=== PATIENT | female | born 2005 | race Two or more races ===

== ENCOUNTER 2025-03-05 16:37 | Emergency (ER) | payer OTHER, MEDICAID, SELFPAY ==
[2025-03-05 16:39] VITALS: BMI 22.6
[2025-03-05 17:16] VITALS: BP 126/69; PULSE 88; RESP 18; TEMP 36.9; O2SAT 99
--- NOTE | 2025-03-05 17:31 | XR_ITS ---
Examination: Complete OB ultrasound, less than 14 weeks, transabdominal Date and time of exam: March 05, 2025 1821 hrs. Indications: Vaginal bleeding today Technique: Obstetrical ultrasound images less than 14 weeks performed via transabdominal imaging Findings: Uterus 6.2 cm endometrial stripe 1.1 cm No uterine mass or intrauterine gestation Right ovary 4.1 cm arterial flow Left ovary 3.2 cm arterial flow Impression: Negative study No intrauterine gestation or uterine mass
--- NOTE | 2025-03-05 17:31 | EDNOTE_ITS ---
ED OB Contraction Preg RMI/HPI General Chief complaint: Vaginal Bleeding Stated complaint: VAG BLEED, SPOTTING THIS AM, 7WK PREG Time Seen by Provider: 03/05/25 16:41 Arrival date/time: 03/05/25 16:37 RME / HPI RME / HPI Narrative: 19-year-old female patient with no significant medical history, 1 para 0 about 7 weeks , came in for evaluation regarding vaginal spotting. Onset of symptoms this morning severity of symptoms mild associated with mild pelvic pain. No checkup done yet. Related Data Allergies Allergy/AdvReac Type Severity Reaction Status Date / Time No Known Allergies Allergy Verified 03/05/25 16:42 Review of Systems Review of Systems Narrative Review of Systems: Review of system reviewed and within normal limits except mentioned in HPI ED Exam Narrative Physical exam: VITAL SIGNS: Reviewed. GENERAL APPEARANCE: Alert and interactive, follows commands, no acute distress, HEAD AND FACE: Non-traumatic. ENT: PERRL, pink conjunctivitis, eyelid no trauma, Mucous membrane moist. NECK: Supple, nontender, no nuchal rigidity. CHEST: No tenderness, no crepitus, no paradoxical movement, no retractions. LUNGS: Clear, well ventilated, symmetric, no rales, no wheezing, no ronchi, no stridor, good breath sounds bilaterally. HEART: Regular rate, regular rhythm, no murmur, no gallops. ABDOMEN: Soft, positive bowel sounds, nondistended, no guarding, nontender, no rebound, no masses, RECTAL: Deferred. GENITAL: Deferred. NEUROLOGICAL: Gross motor function intact sensory function intact, Appropriate for age. MUSCULOSKELETAL: low back nontender, full range of motion. EXTREMITIES: Nontender, full range of motion. SKIN: Color pink, dry, no rash, no lacerations, no abrasions, no contusions. LYMPHATICS: Deferred. Course Quality Measures none Orders Category Date Time Status US OB <= 14 weeks fetus Stat Exams 03/05/25 17:31 Completed ABO/RH Type Stat Lab 03/05/25 17:43 Completed Basic Metabolic Panel Stat Lab 03/05/25 17:43 Completed Beta HCG,Quantitative Stat Lab 03/05/25 17:43 Completed CBC Stat Lab 03/05/25 17:43 Completed Urinalysis Stat Lab 03/05/25 18:21 Completed Vital Signs Vital signs: Vital Signs Temperature 98.5 F 03/05/25 17:16 Pulse Rate 88 03/05/25 17:16 Respiratory Rate 18 03/05/25 17:16 Blood Pressure 126/69 03/05/25 17:16 Pulse Oximetry (%) 99 03/05/25 17:16 Oxygen Delivery Method Room Air 03/05/25 17:16 Vaginal Bleeding MDM Narrative MDM Narrative: 19-year-old female patient with no significant medical history, 1 para 0 about 7 weeks , came in for evaluation regarding vaginal spotting. Onset of symptoms this morning severity of symptoms mild associated with mild pelvic pain. No checkup done yet. Laboratory workup significant for hCG of 1073. Urinalysis no UTI. Ultrasound of showed no intrauterine gestation noted at this time could be too early no other abnormality noted. Patient data External records reviewed:: None Clinical information provided by:: patient Social determinants that could affect healthcare access:: none Patient has the following chronic illnesses:: None How is presenting disease/condition affected by chronic disease/condition?: no chronic disease Evaluation data The following diagnostics were reviewed and interpreted by me:: lab results and radiology exam(s) Lab and/or radiology exams considered but not ordered:: None Interpretation Summary: See results MDM Medications / Prescriptions Medications or Prescriptions considered but not ordered:: None Medication administrations:: None Consultations Consultation(s) initiated? (list below): No Diagnosis Vaginal Bleeding Differential Diagnosis: threatened and vaginal bleeding Most likely diagnosis given after review of the tests above:: Vaginal bleeding in early Admission Indicated Admission indicated?: not indicated Admission Request Was there a request for admission?: No Disposition Plan Disposition Plan: Discharge Discharge Attestation Discharge Attestation: The patient and all family members were given an opportunity to ask questions and understood the discharge instructions. Discharge instructions specifically effects, indications for sooner follow up or return to the emergency department, and the expected course of current diagnosis. Patient condition: Stable Discharge Plan Plan Patient Disposition: HOME (Self Care) Disposition Comment: Stable Prescriptions/Referrals Referrals: Noemi Cooley PA-C [Primary Care Provider] - In 1 week Problem List Clinical Impression: Bleeding in early Patient/Caregiver Discharge Instructions Discharge Activity: activity as tolerated Education Materials: Bleeding During Early Additional Instructions: Thank you for the opportunity for serving you today. You are stable for discharged . You are advised to: Follow-up with your PCP in 1 to 2 days Return to ED for worsening of symptoms Increase oral fluids Pelvic rest no sex for 1 week or until cleared by MECH[employer]ICAL COMMISSIONING ENGINEER Return to emergency room in [place] 3 days for repeat hCG. Print Language: Turkmen Stand Alone Forms: Joselin Award Info., Patient Portal Info Letter PA/WEIGHT TRAINING INSTRUCTOR Supervising Physician PA/WEIGHT TRAINING INSTRUCTOR Supervising Physician: MD Suman
[2025-03-05 17:58] LABS: Basophils % (Auto) 0 % (0-2.5); Eosinophils % (Auto) 0 % (0-10); Immature Granulocytes % (Auto) 0 % (0-0); Immature Granulocytes Auto 0.01 Thou/mm3 (0.00-0.00); Lymphocytes # (Auto) 1.6 Thou/mm3 (1.0-5.0); Lymphocytes % (Auto) 22 % (10-50); Mean Corpuscular HGB Conc 34.2 g/dl (31.0-37.0); Mean Corpuscular Hemoglobin 32.3 pg (25.0-35.0); Mean Corpuscular Volume 94 fL (80-100); Monocytes # (Auto) 0.5 Thou/mm3 (0.0-0.8); Monocytes % (Auto) 7 % (0-12); Neutrophils # (Auto) 5.1 Thou/mm3 (1.8-7.7); Neutrophils % (Auto) 71 % (37-80); Nucleated Red Blood Cell % 0 /100 WBC (0); Platelet Count 307 Thou/mm3 (140-440); Red Blood Count 4.03 Miln/mm3 (4.00-5.20); White Blood Count 7.2 Thou/mm3 (4.5-11.0)
[2025-03-05 18:27] LABS: Collection Type, Urine Clean Catch; Squamous Epithelial Cell,Urine 0 /hpf (0-5)
[2025-03-05 18:32] LABS: Bilirubin,Urine Negative (Negative); Blood,Urine 2+ (Negative); Clarity,Urine Clear (Clear/Hazy); Color,Urine Lt-Yellow (Lt Yel-Yel); Glucose, Urine Negative (Negative); Ketones,Urine 1+ (Negative); Leukocyte Esterase,Urine Negative (Negative); Nitrite,Urine Negative (Negative); Protein,Urine Negative (Neg - Trace); RBC,Urine 7 /hpf (0-3); Specific Gravity,Urine 1.018 (1.001-1.035); Urobilinogen,Urine Negative mg/dL (0.0-1.0); WBC,Urine 5 /hpf (0-5)
[2025-03-05 19:04] LABS: Anion Gap 8 (7-16); BUN/Creatinine Ratio 13 Ratio (12-20); Beta HCG,Quantitative 1073 mIU/mL (<5.0); Blood Urea Nitrogen 9 mg/dL (9-23); Calcium 9.8 mg/dL (8.3-10.6); Carbon Dioxide 22.7 mMol/L (20.0-31.0); Chloride 106 mMol/L (98-107); Creatinine (Component) 0.7 mg/dL (0.6-1.3); Estimated Creatinine Clearance 97.5 mL/min (>60); Glucose 88 mg/dL (74-106); Osmolality,Calculated 271 (275-295); Potassium 3.8 mMol/L (3.4-5.1); Sodium 137 mMol/L (136-145); eGFR > 60 See Note
[2025-03-05 19:55] VITALS: BP 115/60; PULSE 73; RESP 17; TEMP 36.9; O2SAT 100
== END 2025-03-05 21:29 | disposition home or self-care (01) ==
PROVIDERS: Nurse Practitioner Family; Emergency Provider Emergency Medicine; PCP Physician Assistant
DX: O20.9 Hemorrhage in early pregnancy, unspecified (principal); Z3A.01 Less than 8 weeks gestation of pregnancy
CPT/HCPCS: 36415; 76801; 80048; 81001; 84702; 85025; 86900; 86901; 99284